=== PATIENT | female | born 1980 | race Two or more races ===

== ENCOUNTER 2019-07-27 22:48 | Emergency (ER) | payer BC ==
[~2019-07-27] VITALS: Ht 152.4 cm; Wt 52.2 kg
[2019-07-27 23:03] VITALS: BP 111/81
--- NOTE | 2019-07-27 23:09 | NUR ---
PATIENT CAME TO ER BED 10 C/O ABSCESS ON THE BACK OF HER HEAD. PATIENT STATES THAT IT BEGAN A HIVE WHEN SHE STARTED TO SCRATCH THE BUMP AND GOT BIGGER. PATIENT STATES THAT SHE WAS USING WARM COMPRESS AND IT DIDN'T DRAIN. AAOX4. NO SOB. BREATHING EVENLY AND UNLABORED ON ROOM AIR.
[2019-07-27] MEDS ORDERED: IBUPROFEN 600 MG TABLET PO ONE ×2 (23:13→23:30)
--- NOTE | 2019-07-27 23:21 | NUR ---
Patient discharged to home in stable condition. Written and verbal after care instructions given. Patient verbalizes understanding of instruction.
== END 2019-07-27 23:23 | disposition home or self-care (01) ==
LOC: ER 22:48
DX: A49.1 Streptococcal infection, unspecified site (principal)